=== PATIENT | male | born 2005 | race Caucasian/White ===

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

== ENCOUNTER → 2024-06-12 16:01 | Outpatient (BNVA) | payer OTHER, SELFPAY | PROVIDERS: PCP Family Medicine; Visit Provider Nurse Practitioner | DX: J02.9 Acute pharyngitis, unspecified (principal) | CPT/HCPCS: 87880 ==

== ENCOUNTER 2025-05-01 08:08 | Outpatient (CLI) | payer OTHER, SELFPAY ==
[2025-05-01 09:43] LABS: Alanine Aminotransferase 26 U/L (0-41); Albumin Level 4.6 g/dL (3.5-5.2); Alkaline Phosphatase 74 U/L (40-130); Anion Gap 16.3 (5-19); Aspartate Amino Transferase 25 U/L (0-40); Blood Urea Nitrogen 12 mg/dL (6-20); Calcium 9.5 mg/dL (8.5-10.5); Carbon Dioxide 26 mmol/L (22-29); Chloride 103 mmol/L (98-107); Free T4 Free Thyroxine 1.52 ng/dL (0.82-1.77); Globulin 2.8 g/dL (1.3-4.6); Glucose 85 mg/dL (65-115); Osmolality Calculated 291 mOsm/kg (285-295); Potassium 4.3 mmol/L (3.5-5.1); Sodium 141 mmol/L (136-145); Testosterone Total 463.2 ng/dL (249-836); Thyroid Stimulating Hormone 1.02 uIU/mL (0.27-4.20); Total Bilirubin 0.5 mg/dL (0.15-1.2); Total Protein 7.4 g/dL (6.6-8.7)
[2025-05-01 10:59] LABS: Estradiol 24.3 pg/mL (7.63-42.6); Prolactin 10.32 ng/mL (4.0-15.2)
[2025-05-01 14:58] LABS: Follicle Stimulating Hormone 3.2 mIU/mL (1.5-12.4); Luteinizing Hormone 5.1 mIU/mL (1.7-8.6)
[2025-05-02 07:55] LABS: Sex Hormone Binding Globulin 16 nmol/L (10-50)
== END 2025-05-01 08:09 | disposition home or self-care (01) ==
PROVIDERS: PCP Family Medicine; Visit Provider Internal Medicine
DX: F63.81 Intermittent explosive disorder (principal); C95.91 Leukemia, unspecified, in remission; N62 Hypertrophy of breast
CPT/HCPCS: 36415; 80053; 82670; 83001; 83002; 84146; 84270; 84403; 84439; 84443

== ENCOUNTER 2025-05-14 15:10 | Outpatient (CLI) | payer OTHER, SELFPAY ==
[2025-05-14 17:30] LABS: HCG Quantitative < 1.00 mIU/mL
== END 2025-05-14 15:11 | disposition home or self-care (01) ==
PROVIDERS: PCP Family Medicine; Visit Provider Internal Medicine
DX: F63.81 Intermittent explosive disorder (principal); N62 Hypertrophy of breast; C95.91 Leukemia, unspecified, in remission
CPT/HCPCS: 36415; 84702